=== PATIENT | male | born 1935 | race Caucasian/White ===

== ENCOUNTER 2017-02-02 11:37 | Emergency (ER) | payer MEDICARE ==
[~2017-02-02] VITALS: Ht 177.8 cm; Wt 63.5 kg
[~2017-02-02 11:37] MED LIST: ASPI81 PO; CARV3.125 PO; PLAV75TA PO; PRAV40TA2 PO
[2017-02-02 11:44] VITALS: BP 116/69; PULSE 78; RESP 16; TEMP 97.8; O2SAT 98
[2017-02-02] MEDS ORDERED: CLOP75TA PO (12:08)
[2017-02-02] MEDS ORDERED: LISI-519 PO (12:08)
[2017-02-02] MEDS ORDERED: PRAV80TA2 PO (12:08)
[2017-02-02] MEDS ORDERED: ASPI81CH37 CHEW (12:08)
[2017-02-02] MEDS ORDERED: CARV3.12 PO (12:08)
[2017-02-02 12:10] VITALS: RESP 16; O2SAT 98
--- NOTE | 2017-02-02 12:14 | PD ---
HPI Chief Complaint: Headache Time Seen by Provider: 12:08 Travel History International Travel<30 days: No Contact w/Intl Traveler<30days: No Traveled to known affect area: No History of Present Illness HPI 81-year-old male with history of non-Hodgkin's lymphoma currently in remission, previous [place], status post CABG, CVAs, presents to the ER today brought in by his because she states that both of them have had about a 5 day history of flulike symptoms, and he started to have headaches, neck stiffness. He had a cervical manipulation done on the day before the symptoms. However, he reports that his neck was fine after the manipulation. He denies any vomiting, abdominal pains, or any other symptoms. Modifying Factors: None Associated Signs & Symptoms: Flulike symptoms, headache, neck stiffness for 5 days Risk Factors: None PFSH Past Medical History Hx Anticoagulant Therapy: Yes (asa 81mg) Cancer: Yes (HODGEKINS) Cardiac Catheterization: Yes Cardiovascular Problems: Yes (htn on meds 4 vessel bypass, [place] x 2) High Cholesterol: Yes Chemotherapy: Yes Chest Pain: Yes Cerebrovascular Accident: Yes (cva x2) Coronary Artery Disease: Yes Diminished Hearing: No Endocrine: No Gastrointestinal Disorders: Yes GERD: Yes Genitourinary: No Neurologic: Yes Psychiatric: No Respiratory: No Immunizations Current: Yes Myocardial Infarction: Yes (X2) Past Surgical History Cardiac Surgery: Yes (2002 TRIPLE BYPASS,) Coronary Artery Bypass Graft: Yes (X4) Genitourinary Surgery: Yes (PROSTATE) Other Surgery: Yes (PROSTATE) Social History Alcohol Use: Yes (SOCIALLY) Tobacco Use: No (QUIT ) Substance Use: No Allergies-Medications (Allergen,Severity, Reaction): Coded Allergies: Ambien (Verified Allergy, Unknown, UNKNOWN, 02/02/17) Iopamidol (ISOVUE) (Unverified Allergy, Unknown, UNKNOWN, 02/02/17) Potassium Iodide (Verified Allergy, Unknown, UNKNOWN, 02/02/17) Zolpidem (Verified Allergy, Unknown, UNKNOWN, 02/02/17) Reported Meds & Prescriptions Reported Meds & Active Scripts Active Tramadol (Tramadol HCl) 50 Mg Tab 50 Mg PO Q6H PRN Reported Aspirin Low Dose (Aspirin) 81 Mg Chew 81 Mg CHEW DAILY Lisinopril 5 Mg Tab 5 Mg PO DAILY Carvedilol 3.125 Mg Tab 3.125 Mg PO BID Clopidogrel (Clopidogrel Bisulfate) 75 Mg Tab 75 Mg PO DAILY Pravastatin 80 Mg Tab 80 Mg PO DAILY Review of Systems Except as stated in HPI: all other systems reviewed are Neg Physical Exam Narrative GENERAL: Well-developed elderly white male patient to is in mild distress. Awake and oriented 3. Sitting in a lighted room without issues. SKIN: Focused skin assessment warm/dry. HEAD: Atraumatic. Normocephalic. EYES: Pupils equal and round. No scleral icterus. No injection or drainage. ENT: No nasal bleeding or discharge. Mucous membranes pink and moist. NECK: Trachea midline. No JVD. However, patient has significant neck stiffness. No posterior midline C-spine tenderness or step-offs on palpation. CARDIOVASCULAR: Regular rate and rhythm. No murmur appreciated. RESPIRATORY: No accessory muscle use. Clear to auscultation. Breath sounds equal bilaterally. GASTROINTESTINAL: Abdomen soft, non-tender, nondistended. Hepatic and splenic margins not palpable. MUSCULOSKELETAL: No obvious deformities. No clubbing. No cyanosis. No edema. NEUROLOGICAL: Awake and alert. No obvious cranial nerve deficits. Motor grossly within normal limits. Normal speech. PSYCHIATRIC: Appropriate mood and affect; insight and judgment normal. Data Data Last Documented VS Vital Signs Date Time Temp Pulse Resp B/P Pulse Ox O2 Delivery O2 Flow Rate FiO2 02/02/17 16:06 73 16 116/77 98 Room Air 02/02/17 11:44 97.8 Orders Complete Blood Count With Diff (02/02/17 12:08) Comprehensive Metabolic Panel (02/02/17 12:08) Westergren Sedimentation Rate (02/02/17 12:08) C-Reactive Protein (Crp) (02/02/17 12:08) Ct Brain W/O Iv Contrast(Rout) (02/02/17 12:08) Ecg Monitoring (02/02/17 12:08) Iv Access Insert/Monitor (02/02/17 12:08) Oximetry (02/02/17 12:08) Sodium Chloride 0.9% Flush (Ns Flush) (02/02/17 12:15) Ondansetron Inj (Zofran Inj) (02/02/17 12:15) Hydromorphone Pf Inj (Dilaudid Pf Inj) (02/02/17 12:15) Influenzae A/B Antigen (02/02/17 12:08) Ct Cerv Spine W/O Contrast (02/02/17 12:08) Mri Brain W/O Contrast (02/02/17 13:58) Mri C Spine W/O Contrast (02/02/17 ) Labs Laboratory Tests Test 02/02/17 12:25 White Blood Count 7.8 TH/MM3 Red Blood Count 4.69 MIL/MM3 Hemoglobin 14.3 GM/DL Hematocrit 43.0 % Mean Corpuscular Volume 91.6 FL Mean Corpuscular Hemoglobin 30.4 PG Mean Corpuscular Hemoglobin 33.2 % Concent Red Cell Distribution Width 12.7 % Platelet Count 238 TH/MM3 Mean Platelet Volume 7.6 FL Neutrophils (%) (Auto) 70.9 % Lymphocytes (%) (Auto) 11.6 % Monocytes (%) (Auto) 14.7 % Eosinophils (%) (Auto) 1.6 % Basophils (%) (Auto) 1.2 % Neutrophils # (Auto) 5.6 TH/MM3 Lymphocytes # (Auto) 0.9 TH/MM3 Monocytes # (Auto) 1.1 TH/MM3 Eosinophils # (Auto) 0.1 TH/MM3 Basophils # (Auto) 0.1 TH/MM3 CBC Comment DIFF FINAL Differential Comment Erythrocyte Sedimentation Rate 45 mm/hr Sodium Level 138 MEQ/L Potassium Level 4.3 MEQ/L Chloride Level 104 MEQ/L Carbon Dioxide Level 28.2 MEQ/L Anion Gap 6 MEQ/L Blood Urea Nitrogen 13 MG/DL Creatinine 0.87 MG/DL Estimat Glomerular Filtration 85 ML/MIN Rate Random Glucose 98 MG/DL Calcium Level 9.0 MG/DL Total Bilirubin 0.3 MG/DL Aspartate Amino Transf 24 U/L (AST/SGOT) Alanine Aminotransferase 43 U/L (ALT/SGPT) Alkaline Phosphatase 69 U/L C-Reactive Protein 7.00 MG/DL Total Protein 7.5 GM/DL Albumin 3.0 GM/DL MDM Medical Decision Making Medical Screen Exam Complete: Yes Emergency Medical Condition: Yes Medical Record Reviewed: Yes Interpretation(s) Laboratory Tests Test 02/02/17 12:25 Neutrophils (%) (Auto) 70.9 % (16.0-70.0) Monocytes (%) (Auto) 14.7 % (0.0-8.0) Lymphocytes # (Auto) 0.9 TH/MM3 (1.0-4.8) Monocytes # (Auto) 1.1 TH/MM3 (0-0.9) Erythrocyte Sedimentation Rate 45 mm/hr (0-20) Estimat Glomerular Filtration 85 ML/MIN (>89) Rate C-Reactive Protein 7.00 MG/DL (0.00-0.30) Albumin 3.0 GM/DL (3.4-5.0) Last [address] 02/02/17 1208 Signed Impressions: Service Date/Time: Thursday, February 02, 2017 12:40 - CONCLUSION: 1. No acute intracranial abnormality. 2. 1.8 cm arachnoid cyst within the posterior cranial fossa. 3. Acute paranasal sinus disease. Gurjit Briones Jr., MD Differential Diagnosis Flulike symptoms, headaches, neck stiffnesstorticollis versus muscle spasms versus acute intracranial processes versus bony injuries or dislocation versus meningismus Narrative Course Patient is smiling and fairly conversant, awake and oriented, and would not appear on exam to be significantly septic. Lab work did not indicate significant leukocytosis but shows sedimentation rate elevation in CRP elevation. At this point, CAT scan was ordered which did not show any signs of acute intracranial processes or obvious acute spinal fractures or dislocations. Patient does have significant spinal stenosis and arthritis of the spine. MRI was ordered considering that the symptoms seems to have started after manipulation. Case had been discussed with Dr. verma who is his primary care physician,the patient well. In addition, case was discussed with patient's son who is a chiropractor neurologist. At this point, we have agreed that we will wait for an MRI for further evaluation. MRI shows a old left parotic gland abnormality, questionable mass which patient states has been there for years. At this point, MRI did not show any signs of spinal abscess or other acute spinal processes. Dr. verma has been mean to see the patient. And it is agreed that symptoms are more likely to be musculoskeletal or torticollis and that the patient can follow-up as an outpatient. Return for any worsening in symptoms as needed. The plan has been discussed with patient, Dr. verma, and son and they state understanding. Diagnosis Primary Impression: Neck stiffness Med/Other Pt SpecificInfo: Prescription(s) given Scripts Tramadol 50 Mg Tab50 Mg PO Q6H PRN (PAIN) #20 TAB Ref 0 Prov:Soontharothai,Rewadee MD 02/02/17 Disposition: 01 DISCHARGE HOME Condition: Stable Twila Wasserman MD Feb 02, 2017 12:14
[2017-02-02] MEDS ORDERED: ONDANSETRON HCL 4 MG/2 ML VIAL IVP ONE (12:15)
[2017-02-02] MEDS ORDERED: HYDROmorphone HCL PF 1 MG/ML VIAL IVS ONE (12:15)
[2017-02-02] MEDS ORDERED: SODIUM CHLORIDE 0.9% FLUSH 10 ML FLUSH IVF PRN (12:15)
[2017-02-02 12:42] LABS: AUTOMATED NEUTROPHIL # 5.6 TH/MM3 (1.8-7.7); BASOPHIL # 0.1 TH/MM3 (0-0.2); BASOPHIL % 1.2 % (0.0-2.0); EOSINOPHIL # 0.1 TH/MM3 (0-0.4); EOSINOPHIL % 1.6 % (0.0-4.0); LYMPH % 11.6 % (9.0-44.0); LYMPHOCYTE # 0.9 TH/MM3 (1.0-4.8); MEAN CELL VOLUME 91.6 FL (80.0-100.0); MEAN CORPUSCULAR HEMOGLOBIN 30.4 PG (27.0-34.0); MEAN CORPUSCULAR HGB CONC 33.2 % (32.0-36.0); MONO % 14.7 % (0.0-8.0); NEUT % 70.9 % (16.0-70.0); PLATELET COUNT 238 TH/MM3 (150-450); RED BLOOD COUNT 4.69 MIL/MM3 (4.50-5.90); RED CELL DISTRIBUTION WIDTH 12.7 % (11.6-17.2); WHITE BLOOD COUNT 7.8 TH/MM3 (4.0-11.0)
[2017-02-02 12:52] LABS: CHLORIDE 104 MEQ/L (98-107); POTASSIUM 4.3 MEQ/L (3.5-5.1); SODIUM (NA) 138 MEQ/L (136-145)
[2017-02-02 12:53] LABS: HEMO FLAGS DIFF FINAL
[2017-02-02 12:56] LABS: ANION GAP 6 MEQ/L (5-15); BICARBONATE 28.2 MEQ/L (21.0-32.0); BLOOD UREA NITROGEN 13 MG/DL (7-18)
[2017-02-02 12:59] LABS: ALT (GPT) 43 U/L (12-78); AST (GOT) 24 U/L (15-37); GLOMERULAR FILTRATION RATE 85 ML/MIN (>89)
[2017-02-02 13:00] LABS: TOTAL BILIRUBIN ADULT 0.3 MG/DL (0.2-1.0)
[2017-02-02 13:02] LABS: ALKALINE PHOSPHATASE 69 U/L (45-117)
--- NOTE | 2017-02-02 13:25 | RADHPO ---
EXAM DATE/TIME: 02/02/2017 12:40 [facility] COMPARISON: No previous studies available for comparison. INDICATIONS : Non-specific head and neck pain for five days. No known injury. RADIATION DOSE: 26.67 CTDIvol (mGy) MEDICAL HISTORY : Cardiovascular disease. Cerebrovascular disease. Lymphoma. Hypertension. Anticoagulant therapy. SURGICAL HISTORY : CABG ENCOUNTER: Initial ACUITY: 4 - 6 days PAIN SCALE: 5/10 LOCATION: Neck TECHNIQUE: Volumetric scanning of the cervical spine was performed. Multiplanar reconstructions in the sagittal, coronal and oblique axial planes were performed. Using automated exposure control and adjustment o f the mA and/or kV according to patient size, radiation dose was kept as low as reasonably achievable to obtain optimal diagnostic quality images. FINDINGS: There is reversal of the normal cervical lordosis with degenerative changes throughout the cervical s pine. Degenerative changes are seen at C1-C2 articulation. C2-C3: Moderate facet disease is present with right-sided neural foramina encroachment. C3-C4: Moderate facet disease is present with uncinate ridging. Spinal stenosis is mild. Neural foramina e ncroachment is significant. C4-C5: Moderate interspace ridging is present causing some flattening of the anterior thecal space with mode rate spinal stenosis and bilateral neural foramina encroachment. C5-C6: Moderate right-sided encroachment with uncinate ridging. Spinal stenosis is mild. C6-C7: Moderate uncinate ridging is present with bilateral neural foramina encroachment. C7-T1: The bony spinal canal is normal in size. No evidence of disc bulge or herniation. The neural forami na are bilaterally patent. CONCLUSION: Extensive degenerative changes with reversal of normal cervical lordosis. Fracture is not appreciate dEneida Fitzgerald MD FACR on February 02, 2017 at 13:09 Board Certified Radiologist. This report was verified electronically.
--- NOTE | 2017-02-02 13:27 | RADHPO ---
EXAM DATE/TIME: 02/02/2017 12:40 [facility] COMPARISON: No previous studies available for comparison. INDICATIONS : Non-specific head and neck pain for five days. No known injury. RADIATION DOSE: 61.41 CTDIvol (mGy) MEDICAL HISTORY : Cardiovascular disease. Cerebrovascular disease. Lymphoma.Hypertension. Anticoagulant therapy. SURGICAL HISTORY : CABG ENCOUNTER: Initial ACUITY: 4 - 6 days PAIN SCALE: 5/10 LOCATION: cranial TECHNIQUE: Multiple contiguous axial images were obtained of the head. Using automated exposure control and adj ustment of the mA and/or kV according to patient size, radiation dose was kept as low as reasonably a chievable to obtain optimal diagnostic quality images. FINDINGS: CEREBRUM: The ventricles are normal for age. No evidence of midline shift, mass lesion, hemorrhage or acute in farction. No extra-axial fluid collections are seen. POSTERIOR FOSSA: A 1.8 cm CSF density structure is seen posteriorly within the midline. No significant mass effect. No solid component. The cerebellum and brainstem are intact. The 4th ventricle is midline. The cerebe llopontine angle is unremarkable. EXTRACRANIAL: The visualized portion of the orbits is intact. Mucosal thickening is seen involving the ethmoid air cells bilaterally as well as the maxillary sinuses bilaterally. Air-fluid levels are seen within the maxillary sinuses. Mastoid air cells are clear. SKULL: The calvaria is intact. No evidence of skull fracture. CONCLUSION: 1. No acute intracranial abnormality. 2. 1.8 cm arachnoid cyst within the posterior cranial fossa. 3. Acute paranasal sinus disease. Gurjit Briones Jr., MD on February 02, 2017 at 13:22 Board Certified Radiologist. This report was verified electronically.
[2017-02-02 14:25] VITALS: BP 105/64; PULSE 67; RESP 16; O2SAT 98
--- NOTE | 2017-02-02 16:04 | RADHPO ---
EXAM DATE/TIME: 02/02/2017 15:10 [facility] COMPARISON: No previous studies available for comparison. INDICATIONS : Headaches. MEDICAL HISTORY : Hypertension. Non Hodgkin's Lymphoma. SURGICAL HISTORY : CABG ENCOUNTER: Initial ACUITY: 1 day PAIN SCORE: 5/10 LOCATION: Bilateral cranial TECHNIQUE: Multiplanar, multisequence MRI of the brain was performed without contrast. FINDINGS: Scattered periventricular white matter changes are noted. There is no restricted diffu geovanny evident. There is no parenchymal hemorrhage, infarction or mass lesion identified. Ventricular size is appropriate. Posterior fossa is unremarkable with a midline fourth ventricle. Mucoperiosteal thickening is seen in both maxillary sinuses. CONCLUSION: 1. Periventricular white matter changes otherwise negative for an acute process. 2. Mucoperiosteal thickening present in both maxillary sinuses. Neno Fitzgerald MD FACR on February 02, 2017 at 15:58 Board Certified Radiologist. This report was verified electronically.
[2017-02-02 16:06] VITALS: BP 116/77; PULSE 73; RESP 16; O2SAT 98
--- NOTE | 2017-02-02 16:31 | RADHPO ---
EXAM DATE/TIME: 02/02/2017 15:36 [facility] COMPARISON: No previous studies available for comparison. INDICATIONS : Abscess. Pain. MEDICAL HISTORY : Hypertension. Non-Hodgkin's Lymphoma. SURGICAL HISTORY : CABG ENCOUNTER: Initial ACUITY: 1 day PAIN SCORE: 5/10 LOCATION: Left neck region. TECHNIQUE: Multiplanar, multisequence MRI examination of the cervical spine was performed. FINDINGS: MRI of the cervical spine was performed on this patient with pain. Signal intensity of the cervical cord is normal. There is reversal of the normal cervical lordosis. Cerebellar tonsils are in anatomic position. C2-C3: The thecal sac has a normal configuration. There is no evidence of disc herniation or spinal canal s tenosis. The neural foramina are patent bilaterally. C3-C4: Mild uncinate ridging is present with minimal bilateral neural foraminal encroachment. C4-C5: Moderate uncinate ridging is present with bilateral neural foraminal encroachment. C5-C6: Moderate uncinate ridging is present with minimal cervical spinal stenosis. There is mild bilateral neural foraminal encroachment. C6-C7: Mild uncinate ridging is present with bilateral neural foraminal encroachment worse on the left than the right. C7-T1: The thecal sac has a normal configuration. There is no evidence of disc herniation or spinal canal s tenosis. The neural foramina are patent bilaterally. CONCLUSION: 1. There is a 3 cm soft tissue mass in the left parotid incompletely evaluated on today's exams inclu ding the CT scan of the cervical spine. If this is of strong clinical concern CT scan soft tissue ne ck with contrast is suggested. 2. Findings have been discussed with Dr. eMd Jordan on today's date. Neno Fitzgerald MD FACR on February 02, 2017 at 16:25 Board Certified Radiologist. This report was verified electronically.
[2017-02-02] MEDS ORDERED: TRAM50TA PO (16:37)
== END 2017-02-02 16:47 | disposition home or self-care (01) ==
LOC: PHED 11:37
DX: M43.6 Torticollis (principal); I25.2 Old myocardial infarction; I10 Essential (primary) hypertension; E78.00 Pure hypercholesterolemia, unspecified; I25.10 Atherosclerotic heart disease of native coronary artery without angina pectoris; Z86.73 Personal history of transient ischemic attack (TIA), and cerebral infarction without residual deficits; Z85.72 Personal history of non-Hodgkin lymphomas; Z87.891 Personal history of nicotine dependence; Z95.1 Presence of aortocoronary bypass graft; Z79.01 Long term (current) use of anticoagulants
CPT/HCPCS: 70450; 70551; 72125; 72141; 80053; 85025; 85652; 86140; 87804